=== PATIENT | female | born 1965 | race Caucasian/White ===

== ENCOUNTER 2018-04-21 03:14 | Emergency (ER) | payer OTHER, MEDICAID ==
[~2018-04-21] VITALS: Ht 162.6 cm; Wt 50.0 kg
[2018-04-21 03:17] VITALS: BP 171/121
[2018-04-21] MEDS ORDERED: amox tr/potassium clavulanate 875/125mg TAB PO ONE (03:30)
[2018-04-21] MEDS ORDERED: dexamethasone 4mg tablet PO ONE (03:30)
[2018-04-21] MEDS ORDERED: AMOX-580 PO (03:30)
== END 2018-04-21 03:58 | disposition home or self-care (01) ==
LOC: ER 03:15
DX: K04.7 Periapical abscess without sinus (principal); I10 Essential (primary) hypertension; Z56.0 Unemployment, unspecified; Z88.5 Allergy status to narcotic agent; Z79.899 Other long term (current) drug therapy
CPT/HCPCS: 99283; J8540

== ENCOUNTER 2019-11-07 19:18 | Emergency (ER) | payer MEDICAID, OTHER ==
[~2019-11-07] VITALS: Ht 157.5 cm; Wt 56.0 kg
[2019-11-07] MEDS ORDERED: normal saline 1000ML IV soln IV ONE ×2 (19:30→20:10)
[2019-11-07] MEDS ORDERED: ipratropium/albuterol 3ml nebule NEB ONE (19:30)
[2019-11-07 20:01] LABS: BASOPHILS # (AUTO) 0.1 X10'3 (0-0.2); BASOPHILS % (AUTO) 0.7 % (0-1); EOSINOPHILS # (AUTO) 0.1 X10'3 (0-0.9); EOSINOPHILS % (AUTO) 0.5 % (0-6); HEMATOCRIT 42.5 % (35.0-45.0); HEMOGLOBIN 14.5 g/dl (12.0-16.0); LYMPHOCYTES # (AUTO) 1.7 X10'3 (1.1-4.8); LYMPHOCYTES % (AUTO) 12.1 % (21-51); MEAN CORPUSCULAR HEMOGLOBIN 30.1 PG (27.0-31.0); MEAN CORPUSCULAR HGB CONC 34.2 g/dL (33.0-36.5); MEAN PLATELET VOLUME 7.8 FL (7.4-10.4); MONOCYTES % (AUTO) 7.2 % (2-12); NEUTROPHILS # (AUTO) 11.2 X10'3 (1.8-7.7); NEUTROPHILS % (AUTO) 79.5 % (42-75); PLATELET COUNT 361 X10'3 (140-440); RED BLOOD COUNT 4.82 X10'6 (4.20-5.60); RED CELL DISTRIBUTION WIDTH 12.9 % (11.5-14.5); WHITE BLOOD COUNT 14.1 X10'3 (4.5-11.0)
[2019-11-07 20:13] LABS: ALANINE AMINOTRANSFERASE 31 U/L (12-78); ALBUMIN 3.7 G/DL (3.4-5.0); ALKALINE PHOSPHATASE 71 IU/L (46-116); ANION GAP 6 (8-16); ASPARTATE AMINO TRANSFERASE 22 U/L (10-37); BILIRUBIN,TOTAL 0.5 MG/DL (0.1-1.0); BLOOD UREA NITROGEN 12 MG/DL (7-18); BUN/CREATININE RATIO 15.2 (6.6-38.0); CHLORIDE 102 MMOL/L (99-107); CREATININE 0.79 MG/DL (0.40-0.90); GLUCOSE 139 MG/DL (70-104); POTASSIUM 3.2 MMOL/L (3.5-5.1); SODIUM 139 MMOL/L (135-145); TOTAL CARBON DIOXIDE 30.6 MMOL/L (24-32); TOTAL PROTEIN 7.3 G/DL (6.4-8.2); eGFR 76 ML/MIN
--- NOTE | 2019-11-07 20:13 | NUR ---
to xray for chest xray
--- NOTE | 2019-11-07 20:16 | NUR ---
back from xray
[2019-11-07] MEDS ORDERED: ALBU6.7H9 INH (22:16)
[2019-11-07] MEDS ORDERED: TAM75C PO (22:16)
[2019-11-07] MEDS ORDERED: PRED20TA PO (22:16)
[2019-11-07] MEDS ORDERED: AMOX-419 PO (22:16)
[2019-11-07 22:38] VITALS: BP 118/76
== END 2019-11-07 22:40 | disposition home or self-care (01) ==
LOC: ER 19:18
DX: J20.9 Acute bronchitis, unspecified (principal); Z56.0 Unemployment, unspecified; Z60.2 Problems related to living alone; Z88.5 Allergy status to narcotic agent; Z79.899 Other long term (current) drug therapy
CPT/HCPCS: 36415; 71046; 80053; 83605; 84145; 85025; 87040; 87502; 87503; 93005; 94640; 99284; J7030; 94760

== ENCOUNTER 2020-11-08 08:18 | Emergency (ER) | payer MEDICAID ==
[~2020-11-08] VITALS: Ht 157.5 cm; Wt 54.5 kg
[~2020-11-08 08:18] MED LIST: ALBU6.7H9 INH
[2020-11-08] MEDS ORDERED: ibuprofen 200mg tablet PO ONE (09:15)
--- NOTE | 2020-11-08 09:55 | NUR ---
Patient seen and assessed by provider.
== END 2020-11-08 09:55 | disposition home or self-care (01) ==
LOC: ER 08:19
DX: J02.9 Acute pharyngitis, unspecified (principal); Z20.828 Contact with and (suspected) exposure to other viral communicable diseases; R13.10 Dysphagia, unspecified; M79.10 Myalgia, unspecified site; I10 Essential (primary) hypertension; J45.909 Unspecified asthma, uncomplicated; M19.90 Unspecified osteoarthritis, unspecified site; F17.200 Nicotine dependence, unspecified, uncomplicated; Z72.89 Other problems related to lifestyle; Z60.2 Problems related to living alone; Z56.0 Unemployment, unspecified; Z88.5 Allergy status to narcotic agent; Z79.899 Other long term (current) drug therapy
CPT/HCPCS: 36415; 87635; 99283

== ENCOUNTER 2021-08-12 15:13 | Emergency (ER) | payer MEDICAID | END 2021-08-12 17:03 | disposition left against medical advice (07) | LOC: ER 15:13 | DX: U07.1 COVID-19 (principal); Z53.21 Procedure and treatment not carried out due to patient leaving prior to being seen by health care provider ==

== ENCOUNTER 2023-01-04 07:28 | Emergency (ER) | payer MEDICAID ==
[~2023-01-04] VITALS: Ht 157.5 cm; Wt 56.8 kg
[~2023-01-04 07:28] MED LIST changes: +ALBU6.7H14 INH; -ALBU6.7H9 INH
[2023-01-04 07:39] VITALS: BP 161/109
== END 2023-01-04 11:55 | disposition left against medical advice (07) ==
LOC: ER 07:28
DX: J11.1 Influenza due to unidentified influenza virus with other respiratory manifestations (principal); Z53.21 Procedure and treatment not carried out due to patient leaving prior to being seen by health care provider
CPT/HCPCS: 99281

== ENCOUNTER 2023-08-20 00:26 | Emergency (ER) | payer MEDICAID ==
--- NOTE | 2023-08-20 00:28 | NUR ---
PT TELLS TRIAGE NURSE "I'LL BE BACK IN THE MORNING"
== END 2023-08-20 00:43 | disposition left against medical advice (07) ==
LOC: ER 00:27
DX: Z00.00 Encounter for general adult medical examination without abnormal findings (principal); Z53.21 Procedure and treatment not carried out due to patient leaving prior to being seen by health care provider